=== PATIENT | female | born 1950 | race Caucasian/White ===

== ENCOUNTER 2016-12-03 17:21 | Emergency (ER) | payer OTHER ==
[~2016-12-03 17:21] MED LIST: ALPR0.5T99 PO; ATOR40TA PO; LAMI200T OR; LATU40TA PO; OMEP20TA OR; PLAV75TA PO; TRIL150T PO
[2016-12-03 17:24] VITALS: BP 137/75; PULSE 75; RESP 18; TEMP 98.8; O2SAT 97
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
[2016-12-03] MEDS ORDERED: ROBA500T PO (18:25)
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
== END 2016-12-03 19:40 | disposition home or self-care (01) ==
LOC: NEPD 17:21
DX: S20.219A Contusion of unspecified front wall of thorax, initial encounter (principal); V43.52XA Car driver injured in collision with other type car in traffic accident, initial encounter; Y93.89 Activity, other specified; Y92.9 Unspecified place or not applicable; Y99.9 Unspecified external cause status
CPT/HCPCS: 71010; 99283